=== PATIENT | female | born 1985 | race Two or more races ===

== ENCOUNTER 2020-03-17 09:10 | Outpatient (REF) | payer OTHER, SELFPAY ==
[2020-03-17 12:43] LABS: Influenza A PCR NEGATIVE (Negative); Influenza B PCR NEGATIVE (Negative); Resp Syncy Virus RNA Qual PCR NEGATIVE (Negative); SARS COV2 PCR INHOUSE POSITIVE (Negative)
== END 2020-03-17 09:11 | disposition home or self-care (01) ==
LOC: HO.LAB 09:10
PROVIDERS: Visit Provider Nurse Practitioner Family
DX: J40 Bronchitis, not specified as acute or chronic (principal); Z20.828 Contact with and (suspected) exposure to other viral communicable diseases
CPT/HCPCS: 0241U

== ENCOUNTER 2020-06-10 11:08 | Outpatient (REF) | payer OTHER, SELFPAY ==
[2020-06-10 14:48] LABS: Hematocrit 40.8 % (37-47); Hemoglobin 13.8 g/dl (12.0-16.0); Mean Corpuscular HGB Conc 33.8 g/dl (31.0-35.0); Mean Corpuscular Hemoglobin 32.2 pg (27.0-33.0); Mean Corpuscular Volume 95.3 fL (80-98); Platelet Count 294 X10*3/uL (160-400); Red Blood Count 4.28 X10*6/uL (4.20-5.50); Red Cell Distribution Width 13.4 % (11.0-16.0); White Blood Count 6.8 X10*3/uL (4.8-10.8)
[2020-06-10 15:11] LABS: Alanine Aminotransferase 16 U/L (0-31); Albumin Level 4.8 g/dL (3.5-5.0); Alkaline Phosphatase 66 U/L (39-117); Anion Gap 14 (12-20); Aspartate Amino Transferase 20 U/L (5-31); Bilirubin Total 0.5 mg/dL (0.0-1.0); Blood Urea Nitrogen 9 mg/dL (9-16); Calcium 9.4 mg/dL (8.4-10.2); Carbon Dioxide 24 mmol/L (22-29); Chloride 104 mmol/L (96-108); Estimated Glomerular Filt Rate > 60; Glucose Random 79 mg/dL (60-115); Potassium 4.1 mmol/L (3.3-5.1); Sodium 138 mmol/L (135-145); Total Protein 8.2 g/dL (6.5-8.0)
[2020-06-10 15:36] LABS: TSH reflex Free T4 0.95 uIU/mL (0.32-4.0)
[2020-06-11 04:17] LABS: Triiodothyronine T3 Free 3.2 pg/mL (2.3-4.2)
== END 2020-06-10 11:09 | disposition home or self-care (01) ==
LOC: HO.HMGCLDS 11:08
PROVIDERS: PCP Internal Medicine; Visit Provider Internal Medicine
DX: R63.4 Abnormal weight loss (principal)
CPT/HCPCS: 36415; 80053; 84443; 84481; 85027

== ENCOUNTER 2020-07-26 13:39 | Outpatient (REF) | payer OTHER, SELFPAY ==
[2020-07-26 14:09] LABS: COVID-19 Test Negative (Negative)
== END 2020-07-26 13:40 | disposition home or self-care (01) ==
LOC: HO.LAB 13:39
PROVIDERS: Visit Provider Internal Medicine
DX: Z20.822 Contact with and (suspected) exposure to COVID-19 (principal)
CPT/HCPCS: 36415; 87635; C9803

== ENCOUNTER 2020-08-09 08:02 | Outpatient (REF) | payer OTHER, SELFPAY ==
[2020-08-09 10:16] LABS: HBc Num1 0.14 S/CO (0.00-0.79); HIV AB/AG Nonreactive (Nonreactive); HIV Num 1 0.08 S/CO (0.00-0.99); Hepatitis B Core Antibody Nonreactive (Nonreactive)
[2020-08-09 10:24] LABS: ~HepC Num1 0.09 S/CO (0.00-0.79); ~Hepatitis C Antibody Nonreactive (Nonreactive)
[2020-08-10 09:03] LABS: Syphilis Screen Nonreactive (Nonreactive)
[2020-08-10 12:06] LABS: CT PCR NOT DETECTED (Not Detect.); NG PCR NOT DETECTED (Not Detect.)
[2020-08-16 00:06] LABS: HPV 16 RNA NOT DETECTED (NOT DETECTED); HPV mRNA E6/E7 rflx Detected (Not Detected)
== END 2020-08-09 08:03 | disposition home or self-care (01) ==
LOC: HO.LAB 08:02
PROVIDERS: PCP Internal Medicine; Visit Provider Advanced Practice Midwife
DX: Z01.419 Encounter for gynecological examination (general) (routine) without abnormal findings (principal); Z11.51 Encounter for screening for human papillomavirus (HPV); Z11.3 Encounter for screening for infections with a predominantly sexual mode of transmission; Z11.4 Encounter for screening for human immunodeficiency virus [HIV]; Z01.84 Encounter for antibody response examination; Z20.2 Contact with and (suspected) exposure to infections with a predominantly sexual mode of transmission; N91.5 Oligomenorrhea, unspecified
CPT/HCPCS: 36415; 86704; 86780; 86803; 87389; 87491; 87591; 87624; 87625; 88142

== ENCOUNTER 2020-09-14 13:52 | Outpatient (REF) | payer OTHER, SELFPAY | END 2020-09-14 13:53 | disposition home or self-care (01) | LOC: HO.LAB 13:52 | PROVIDERS: PCP Internal Medicine; Visit Provider Obstetrics & Gynecology | DX: R87.612 Low grade squamous intraepithelial lesion on cytologic smear of cervix (LGSIL) (principal) | CPT/HCPCS: 57456; 88305 ==

== ENCOUNTER 2020-09-23 08:15 | Outpatient (REF) | payer OTHER, SELFPAY | END 2020-09-23 08:16 | disposition home or self-care (01) | LOC: HO.LAB 08:15 | PROVIDERS: PCP Internal Medicine; Visit Provider Internal Medicine | DX: Z20.822 Contact with and (suspected) exposure to COVID-19 (principal) | CPT/HCPCS: C9803; U0003; U0005 ==

== ENCOUNTER → 2020-09-28 11:41 | Outpatient (BNVA) | payer OTHER, SELFPAY | PROVIDERS: PCP Internal Medicine; Visit Provider Obstetrics & Gynecology ==

== ENCOUNTER 2021-10-16 14:38 | Outpatient (REF) | payer OTHER, SELFPAY ==
[2021-10-19 04:26] LABS: HPV mRNA E6/E7 rflx Not Detected (Not Detected)
== END 2021-10-16 14:39 | disposition home or self-care (01) ==
LOC: HO.LAB 14:38
PROVIDERS: Visit Provider Advanced Practice Midwife
DX: Z01.419 Encounter for gynecological examination (general) (routine) without abnormal findings (principal); Z11.51 Encounter for screening for human papillomavirus (HPV)
CPT/HCPCS: 87624; 88142

== ENCOUNTER 2022-01-23 10:40 | Outpatient (REF) | payer OTHER, SELFPAY ==
[2022-01-23 14:13] LABS: MANUAL DIFF FLAG NO
[2022-01-23 14:24] LABS: Basophils Percent Auto 0.5 % (0-2); Eosinophils Percent Auto 1.1 % (0-4); Hematocrit 38.9 % (37.0-47.0); Hemoglobin 13.2 g/dl (12.0-16.0); Imm Gran Abs Auto 0.01 X10*3/uL (0.00-0.03); Imm Gran Pct Auto 0.3 % (0.0-0.4); Lymphocytes Absolute Auto 1.3 X10*3/uL (1.2-4.9); Lymphocytes Percent Auto 33.2 % (20-40); Mean Corpuscular HGB Conc 33.9 g/dl (31.0-35.0); Mean Corpuscular Hemoglobin 31.8 pg (27.0-33.0); Mean Corpuscular Volume 93.7 fL (80.0-98.0); Mean Platelet Volume 9.2 fL (9.4-12.3); Monocytes Absolute Auto 0.3 X10*3/uL (0.1-1.2); Neutrophils Absolute Auto 2.1 x10*3/uL (2.0-8.3); Neutrophils Percent Auto 56.9 % (45-73); Platelet Count 236 X10*3/uL (160-400); Red Blood Count 4.15 X10*6/uL (4.20-5.50); Red Cell Distribution Width 12.3 % (11.0-16.0); White Blood Count 3.8 X10*3/uL (4.8-10.8)
[2022-01-23 14:55] LABS: Vitamin D 25-OH Total 20.5 ng/mL (>30)
[2022-01-23 14:56] LABS: Alanine Aminotransferase 15 U/L (0-31); Albumin Level 4.4 g/dL (3.5-5.0); Alkaline Phosphatase 66 U/L (39-117); Anion Gap 14 (12-20); Aspartate Amino Transferase 18 U/L (5-31); Bilirubin Total 0.5 mg/dL (0.0-1.0); Blood Urea Nitrogen 8 mg/dL (9-16); Carbon Dioxide 23 mmol/L (22-29); Chloride 107 mmol/L (96-108); Cholesterol 187 mg/dL; Estimated Glomerular Filt Rate > 60; Glucose Fasting 78 mg/dL (60-99); HDL Cholesterol 70 mg/dL; LDL Cholesterol Calculated 101 mg/dl; Potassium 3.9 mmol/L (3.3-5.1); Sodium 140 mmol/L (135-145); Total Protein 7.5 g/dL (6.5-8.0); Triglycerides 83 mg/dL
== END 2022-01-23 10:41 | disposition home or self-care (01) ==
LOC: HO.HMGCLDS 10:40
PROVIDERS: PCP Internal Medicine; Visit Provider Internal Medicine
DX: Z00.00 Encounter for general adult medical examination without abnormal findings (principal)
CPT/HCPCS: 36415; 80053; 80061; 82306; 85025

== ENCOUNTER 2022-10-22 13:54 | Outpatient (AMB) | payer OTHER, SELFPAY ==
[2022-10-22 13:56] VITALS: BMI 24.0
--- NOTE | 2022-10-22 13:56 | A.OFFVIS_ITS ---
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 It seems like they have been coming closer together and she has written them down and her calendar but not 100% she listed some of her recent periods when we went through her calendar as the following March 13MarchApril 29 May 23 July 13 August 05 August 28 September 19 and then the last 1 on October 14 she also says her periods are getting cramp ear and more painful. On questioning she does think that the longer cycle periods have been the heavier more crampy ones. On questioning she does not think she has had an extreme weight gain or loss. She thinks she is healthy otherwise but has not seen her primary in a couple of years. She is under lot of stress caring for her father most especially who has gone through a lot of health challenges after having COVID last year when he was hospitalized with PEs and he has gone downhill since and requires a lot of care her mother is there also but she has her own health challenges and a lot of it false to her for care for them. She is not sexually active and does not plan to be till she . She had an abnormal Pap smear after her cheated on her though last year's Pap is normal and negative. She has had no for further sexual contact since then. She was open to cultures being done as I did not find record in our system that we did them at the previous visit. On questioning she does not think that she has increased facial hair but she does notice a little bit on her chin. She has circles under eyes but she says she always has that she tries to take care of herself but it is hard. In reviewing the last 6 months of her cycle cycles range from 46 days and 44 days at the longest to 25 and 22 at the shortest. Patient has additional questions about future fertility issues especially with irregular cycles and what she has heard about with PCOS. She also notes the periods have been much more crampy and uncomfortable and sometime she vomits with the cramps. She wants to know what options there are to deal with them. [facility] Medical History Seizure in childhood Stress and adjustment reaction Weight loss Surgical History Hx of LASIK Family History Father Diabetes HTN (hypertension) CVD (cardiovascular disease) Mother Fibromyalgia Arthritis Maternal Grandmother Diabetes HTN (hypertension) Maternal Grandfather Diabetes HTN (hypertension) CVD (cardiovascular disease) Stroke Glaucoma Paternal Grandmother Stroke Diabetes Maternal Aunt Breast cancer Social History Housing: Apartment Alcohol intake: current Alcohol intake frequency: holidays/special occasions only Patient Tobacco Use Status: Never used Tobacco e-Cigarette/Vaping Use: Never Used Current occupational status: unemployed Cognitive needs: No Hearing needs: No Vision needs: No Female Reproductive History Menstrual Age of Menarche: 13 Duration of menses: 6-7 days Date of last menstrual period: 10/14/22 control method: none Total pregnancies: 0 Date of last pap smear: 10/17/21 (negative) History of abnormal pap smear: Yes (2020 CIN1 +HPV) Physical Exam Vital Signs: BMI result Body Mass Index 24.0 Const General: healthy appearing, comfortable, no acute distress, well developed and alert Nutritional Appearance: average body habitus Orientation/consciousness: patient oriented x3 Limitations: no limitations HEENT Head: Yes normocephalic Neck Neck: Yes normal visual inspection Thyroid: Thyroid normal Chest Chest palpation & inspection: normal inspection of the chest Breast/axilla inspection: normal inspection of the breasts and normal inspection of the axillae Breast/axilla palpation: normal palpation of the breasts and normal palpation of the axillae Resp Effort & Inspection: normal respiratory effort GI Inspection: Yes normal to inspection, No Abdominal wall edema and No distended Palpation (GI): Soft to palpation and nontender General: Yes bladder normal to palpation External Female Exam: normal external appearance and normal appearance of the urethra Speculum Exam - Vagina: normal appearance of the vagina, normal palpation and normal vaginal discharge Speculum Exam - Cervix: normal appearance of the cervix, normal palpation and nontender Bimanual exam- vagina & uterus: normal bimanual exam, normal palpation, uterine size normal, bladder normal to palpation, consistency normal, normal palpation, uterine mobility normal, uterine shape normal, No Cervical tenderness present, non-tender and no cervical motion tenderness Bimanual Exam- Adnexa, other: normal adnexae, no masses, normal and No adnexal tenderness Neuro General: patient oriented x3 Assessment & Plan Assessment & Plan (1) Well woman exam with routine gynecological exam: Code(s): Z01.419 - Encounter for gynecological examination (general) (routine) without abnormal findings (2) LGSIL (low grade squamous intraepithelial dysplasia): Comment: 07/2020, had colpo w MZ- 10/12, also LGSIL....10/16/21 pap= neg w neg hpv (3) Potential exposure to STD: Code(s): Z20.2 - Contact with and (suspected) exposure to infections with a predominantly sexual mode of transmission (4) History of irregular menstrual cycles: Code(s): Z87.42 - Personal history of other diseases of the female genital tract Plan -----Discussed in this visit the following: healthy balanced diet, regular and consistent exercise, getting recommended health screens, doing the best she can for her particular health concerns, kegel exercises, pap smear screening and followup recommendations, mammography screening and SBE, normal changes in cycles in her life stage--- .Discussed the normal menstrual cycles, in terms of length of time for each part of the cycle, range of experiences for bleeding/periods, cramping and clots and the various ways of handling all of these including the various menstrual products available today and common use of non inflammatory medications such as ibuprofen to help with the cramping, and changes in vaginal and cervical discharge that occur throughout the changes in the menstrual cycle. Also discussed what is happening in the ovaries, with preparing to ovulate, ovulation, and what happens afterward as well. Discussed signs of ovulation including fertile appearing mucus, libido changes, breast changes, ovulatory pain and twinges, and the optimal /most risky times to become . Reviewed that menstrual cycles do not obey the printed calendar, but rather follow the body's own cycle discussed what can sometimes happen if the cycle is interrupted by other health events such as anovulatory cycles. Discussed other metabolic changes that have a very profound effect on menstrual cycles including weight and the increased hormones that occur in that setting. ---Discussed PCOS in general and specifically about the interplay of the abnormal hormonal milieu related to being overweight, with the elevations of many hormone levels, including testosterone and estrogen, as well as others that contribute to cycles that are anovulatory and therefore prolonged, and when periods do come they come very heavy, and can contribute to lots of cramping, with passage of clots and anemia. Discussed the common symptoms related to the elvated hormonal levels, including increased facial hair, male pattern hair thinning, acne, and increased central abdominal girth. Discussed the interplay with difficulty getting when desired, but still possible, and therefore the need to contracept as appropriate and when needed. Discussed the role of weight loss as the primary, most important, and most li froy to succeed, intervention, in achieving healthier status as regards PCOS, and ovulatory regular cycles. Additionally the very important relationship to elevated insulin levels, and blood sugars, and high risk of pre diabetes, progressing to diabetes as well as other metabolic syndromes related to this was discussed. Also discussed common interventions for some of the above, including if a ppropriate, use of oral contraceptives, and progestin iuds. All of this was discussed in connection with her irregular cycles and all the possibilities though I do not think the chances of her having PCOS are high but I have offered the blood tests and she and I are going to have more thorough discussion in 3 months when she keeps very close track of her cycles and we review the labs. Additionally I did offer her some of the above methods to deal with her painful periods as well but for now she is going to plow through with taking just the ibuprofen and I recommend she take it at the beginning of her cycles. I also discussed the value of keeping very close track of her cycles and symptoms of ovulation so that if she does get and wished to conceive in the upcoming years she will have knowledge of her cycle very clear Ilene in front of her which may assist her discussed also the decreased fertility as 1 gets older as well. Orders: Orders Bacterial Vaginosis Panel Today Z - Encounter for gynecological examination (general) (routine) without abnormal findings CT NG by PCR Today Z - Encounter for gynecological examination (general) (routine) without abnormal findings Thyroid Stimulating Hormone Today Z - Encounter for gynecological examination (general) (routine) without abnormal findings, Z20.2 - Contact with and (suspected) exposure to infections with a predominantly sexual mode of transmission, Z87.42 - Personal history of other diseases of the female genital tract Prolactin Today Z87. - Personal history of other diseases of the female genital tract DHEA Sulfate Today Z87. - Personal history of other diseases of the female genital tract Follicle Stimulating Hormone Today Z87. - Personal history of other diseases of the female genital tract Lutenizing Hormone Today Z87.42 - Personal history of other diseases of the female genital tract Testosterone, Free/Total Today Z87. - Personal history of other diseases of the female genital tract Sex Hormone Binding Globulin Today Z87. - Personal history of other diseases of the female genital tract Free T4 (Free Thyroxine) Today Z87.42 - Personal history of other diseases of the female genital tract Pap Smear Today Z - Encounter for gynecological examination (general) (routine) without abnormal findings Coding Level of Care Code Est Pt Prev Care 18-39y(69100) Diagnoses Well woman exam with routine gynecological exam Z LGSIL (low grade squamous intraepithelial dysplasia) Potential exposure to STD Z20.2 History of irregular menstrual cycles Z87.42
== END 2022-10-22 15:46 | disposition home or self-care (01) ==
LOC: HO.HWS 13:54
PROVIDERS: PCP Internal Medicine; Visit Provider Advanced Practice Midwife
DX: Z01.419 Encounter for gynecological examination (general) (routine) without abnormal findings (principal); Z20.2 Contact with and (suspected) exposure to infections with a predominantly sexual mode of transmission; Z87.42 Personal history of other diseases of the female genital tract
CPT/HCPCS: 99395

== ENCOUNTER 2022-10-22 13:54 | Outpatient (REF) | payer OTHER, SELFPAY ==
[2022-10-22 17:29] LABS: Free T4 (Free Thyroxine) 1.06 ng/dL (0.71-1.85); Thyroid Stimulating Hormone 1.13 uIU/mL (0.32-4.0)
[2022-10-23 05:54] LABS: CT PCR NOT DETECTED (Not Detect.); NG PCR NOT DETECTED (Not Detect.)
[2022-10-23 14:17] LABS: BV Int Neg Control Negative (Negative); BV Int Pos Control Positive (Positive)
[2022-10-23 19:53] LABS: DHEA Sulfate 424 mcg/dL (19-237); Lutenizing Hormone 21.1 mIU/mL; Prolactin 7.2 ng/mL; Sex Hormone Binding Globulin 50 nmol/L (17-124)
[2022-10-25 22:18] LABS: HPV mRNA E6/E7 rflx Not Detected (Not Detected)
[2022-10-26 16:24] LABS: Testosterone, Total 27 ng/dL (2-45)
== END 2022-10-22 13:55 | disposition home or self-care (01) ==
LOC: HO.LNP 13:54
PROVIDERS: PCP Internal Medicine; Visit Provider Advanced Practice Midwife
DX: Z01.419 Encounter for gynecological examination (general) (routine) without abnormal findings (principal); N92.6 Irregular menstruation, unspecified; Z20.2 Contact with and (suspected) exposure to infections with a predominantly sexual mode of transmission; Z87.42 Personal history of other diseases of the female genital tract; Z79.899 Other long term (current) drug therapy
CPT/HCPCS: 0353U; 82627; 83001; 83002; 84146; 84270; 84402; 84403; 84439; 84443; 87480; 87510; 87624; 87660; 88142

== ENCOUNTER 2023-01-07 09:21 | Outpatient (AMB) | payer OTHER, SELFPAY ==
--- NOTE | 2023-01-07 10:53 | MHC.OFFWIV ---
Intake Vital Signs 01/07/23 10:54 Height 5 ft Weight 56.245 kg BMI 24.2 BP 120/70 Blood Pressure Location Rt brachial Position Sitting Pulse 81 Pulse Source Pulse Oximeter Temp 98.1 F Temp Source Temporal Artery Scan Pulse Oximetry (%) 98 Intake Visit Reasons: EP, left eye redness,discharge ([phone]) Intake Note: pt is here for c/o left eye redness, and discharge, swolle eye left eye 20/20 right eye 20/20 both eyes 20/20 uncorrected Patient Tobacco Use Status: Never used Tobacco Allergies penicillin V Allergy (Unknown, Verified 01/07/23 10:54) hives Do you need a note to return to daycare/school/sports/work: Yes HPI EP, left eye redness,discharge ([phone]) HPI Details Patient presents with 1 day redness purulent drainage of the left eye. She woke up this with the eye crusted shut with purulent drainage. 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 [facility] Medical History Seizure in childhood Stress and adjustment reaction Weight loss Surgical History Hx of LASIK Family History Father Diabetes HTN (hypertension) CVD (cardiovascular disease) Mother Fibromyalgia Arthritis Maternal Grandmother Diabetes HTN (hypertension) Maternal Grandfather Diabetes HTN (hypertension) CVD (cardiovascular disease) Stroke Glaucoma Paternal Grandmother Stroke Diabetes Maternal Aunt Breast cancer Social History Housing: Apartment Alcohol intake: current Alcohol intake frequency: holidays/special occasions only Patient Tobacco Use Status: Never used Tobacco e-Cigarette/Vaping Use: Never Used Current occupational status: unemployed Cognitive needs: No Hearing needs: No Vision needs: No Female Reproductive History Menstrual Age of Menarche: 13 Review of Systems Const Reports as per HPI and Reports no additional complaints Eyes Reports no additional complaints ENT Reports no additional complaints and Reports as per HPI Physical Exam Vital Signs: Last Vital Signs Temp 98.1 F 01/07/23 10:54 Pulse 81 10/16/23 10:54 BP 120/70 01/07/23 10:54 Pulse Ox 98 01/07/23 10:54 BMI result Body Mass Index 24.2 Const General: cooperative, comfortable and no acute distress Orientation/consciousness: patient oriented x3 HEENT General nose exam: Normal nasal mucous membranes and turbinates present Eyes Visual Caldera: normal visual caldera by confrontation Alignment and Position: alignment normal Periorbital: periorbital findings normal Eyelids: Yes eyelids normal Conjunctivae: conjunctival abnormal (Mild injection of the left conjunctiva) Sclerae: scleral abnormal (Mild injection) left Corneas: corneas normal Pupils: Equal, round and reactive pupils present EOM: EOMs intact bilaterally Resp Effort & Inspection: normal respiratory effort Auscultation: clear to auscultation bilaterally Cardio Rate: regular rate Rhythm: regular rhythm Heart sounds: S1 normal heart sound present and S2 normal heart sound present Neuro General: patient oriented x3 Cranial nerves: Yes Equal, round and reactive pupils present Assessment & Plan Assessment & Plan (1) Conjunctivitis: Code(s): H10.9 - Unspecified conjunctivitis Qualifiers: Conjunctivitis type: acute Acute conjunctivitis type: unspecified Laterality: left Qualified Code(s): H10.32 - Unspecified acute conjunctivitis, left eye Plan: Will treat with Polytrim drops. Advised patient on use. She does not wear contact lenses. Counseled on good hand hygiene. Return to clinic if symptoms do not improve or worsen in any way. Medications: New polymyxin B sulf-trimethoprim 10,000 unit- 1 mg/mL (Polytrim) while awake; do not exceed 6 doses in 24 hours 1 drp ophthalmic (eye) QID 7 days 10 mL 0RF H10.32 - Unspecified acute conjunctivitis, left eye Coding Level of Care Code Est Pt Level 3 (91165) Diagnoses Acute conjunctivitis of left eye, unspecified acute conjunctivitis type H10.32 Conjunctivitis type: acute Acute conjunctivitis type: unspecified Laterality: left
[2023-01-07 10:54] VITALS: BP 120/70; PULSE 81; TEMP 36.7; O2SAT 98; BMI 24.2
== END 2023-01-07 11:28 | disposition home or self-care (01) ==
PROVIDERS: PCP Internal Medicine; Visit Provider Physician Assistant
DX: H10.32 Unspecified acute conjunctivitis, left eye (principal)
CPT/HCPCS: 99213

== ENCOUNTER 2023-01-11 14:25 | Outpatient (AMB) | payer OTHER, SELFPAY ==
[2023-01-11 14:29] VITALS: BP 100/62; BMI 24.2
--- NOTE | 2023-01-11 14:29 | A.OFFVIS_ITS ---
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 Information Interpreted: clinical only Allergies penicillin V Allergy (Unknown, Verified 01/11/23 14:31) hives Medication List - Last Reconciled 01/11/23 by Tereza Pate CNM ascorbic acid (vitamin C) 500 mg PO DAILY cholecalciferol (vitamin D3) 50 mcg PO DAILY polymyxin B sulf-trimethoprim 10,000 unit- 1 mg/mL (Polytrim) 1 drp ophthalmic (eye) QID 7 days zinc acetate 50 mg PO DAILY Is last menstrual period known: Yes Last menstrual period: 12/24/22 Post menopausal: No Patient : No Do you need a note to return to daycare/school/sports/work: No HPI Lab follow up HPI Details Patient is here to review her lab work which she had done to review her hirsute is Um and irregular periods she has been keeping track of her periods for a long time and she actually wrote down the date each. Started on a piece of paper for the last 4 years and then and counted how many days between 1 and the next 1 and on average most of her cycles are 23-24 day cycles from the start of 1 to the start of the next with some being as short as 20 days and some as long as 28 days there were also at least 2 cycles that appeared to be twice as long but it is possible that those did not include actual documentation of her menses for those monthsx, She has hirsute is Um. She has thinning of her hair in her temples she is not overweight she sees her primary care provider and has her next appointment coming up in February and she was concerned about the periods and also sometimes they can be very crampy. She is not sexually active now she went through a divorce a little while back she believes in having a child in marriage and while she would like to have children she is not currently and does not have a partner. Her mother went through menopause at age 40. She currently has Glanse. She does not have any other medical issues and among fasting labs that were done in the past in 2021 include of glucose of 78 which is it within the normal range Her labs were reviewed with her today and the labs were mostly within normal limits though her FSH is slightly elevated and also her DHEA is significantly elevated to almost double the high range. The patient states that she and I discussed the value of getting an ultrasound at the last visit and she decided to wait and see how the lab work turned out 1st. We reviewed all of the labs today and discussed their possible significance in determining whether not she fits the full picture of PCOS she does not have all the go menorrhea in fact she has more frequent menses. Discussed that she may want to discuss with either infertility specialists or endocrine specialists in general about potential for diabetes which she is concerned about because of her family history, and also the hirsute is Um and also the hair loss. I also raised the issue of her mother's early menopause and the patient's own potential for future childbearing and what she may wish to do about that. For now we are getting of pelvic ultrasound and I discussed what criteria we would be looking at to indicate an ovulatory cycles. In the meantime I have also placed a endocrine referral for her so that she can have a further discussion about all of this with somebody who has expertise in it I also raised the possibility of taking control pills or some other method of control. She is normotensive. [facility] Medical History Stress and adjustment reaction Weight loss Seizure in childhood Surgical History Hx of LASIK Family History Father Diabetes HTN (hypertension) CVD (cardiovascular disease) Mother Fibromyalgia Arthritis Maternal Grandmother Diabetes HTN (hypertension) Maternal Grandfather Diabetes HTN (hypertension) CVD (cardiovascular disease) Stroke Glaucoma Paternal Grandmother Stroke Diabetes Maternal Aunt Breast cancer Social History Housing: Apartment Alcohol intake: current Alcohol intake frequency: holidays/special occasions only Patient Tobacco Use Status: Never used Tobacco e-Cigarette/Vaping Use: Never Used Current occupational status: unemployed Cognitive needs: No Hearing needs: No Vision needs: No Female Reproductive History Menstrual Age of Menarche: 13 Date of last menstrual period: 12/24/22 control method: none Physical Exam Vital Signs: Last Vital Signs BP 100/62 01/11/23 14:29 BMI result Body Mass Index 24.2 Results Reviewed Results Reviewed: Name: Emiliana Chauhan Age/Sex: 37/F : 1985 Unit#: [id number] Attend Dr: RioTereza MELYSSAEdel Re10/22/22 Status: DEP REF Location: [facility] Disch: SPEC : [id number] CAMERON: 10/22/22 STATUS: COMP REQ : [id number] RECD: 10/22/[address]: Tereza Pate COMP: 10/26/22 ENTERED: 10/22/[address]: Josselin Lozano MD ORDERED: FSH, LH, Prol, DHEAS, Sex Hor Bin Elizabeth, Testost Fr & T Test Result Flag Reference Site FSH 20.0 mIU/mL QUM Reference Range Follicular Phase 2.5-10.2 Mid-cycle Peak 3.1-17.7 Luteal Phase 1.5- 9.1 Postmenopausal 23.0-116.3 THIS TEST WAS PERFORMED AT: [facility] [address] [place] [id number] JULIO C MOORE MD LH 21.1 mIU/mL QUM Reference Range Follicular Phase 1.9-12.5 Mid-Cycle Peak 8.7-76.3 Luteal Phase 0.5-16.9 Postmenopausal 10.0-54.7 THIS TEST WAS PERFORMED AT: [facility] [address] [place] [id number] JULIO C MOORE MD Prolactin 7.2 ng/mL QUM Reference Range Females Non- 3.0-30.0 10.0-209.0 Postmenopausal 2.0-20.0 THIS TEST WAS PERFORMED AT: [facility] [address] [place] [phone] JULIO C MOORE MD DHEA-Sulfate 424 H 19-237 mcg/dL QUM THIS TEST WAS PERFORMED AT: [facility] [address] [place] [phone] JULIO C MOORE MD Sex Hor Bin Elizabeth 50 17-124 nmol/L QUM THIS TEST WAS PERFORMED AT: [facility] [address] [place] [phone] JULIO C MOORE MD Testost, Tot 27 2-45 ng/dL QUM For additional information, please refer to http://education.Gruvi/faq/ [email or web address] (This link is being provided for informational/ educational purposes only.) This test was developed and its analytical performance characteristics have been determined by [facility] [place], [place]. It has not been cleared or approved by the U.S. Food and Drug Administration. This assay has been validated pursuant to the CLIA regulations and is used for clinical purposes. Testost, Free 3.0 0.1-6.4 pg/mL QUM This test was developed and its analytical performance characteristics have been determined by [employer] [place], [place]. It has not been cleared or approved by the U.S. Food and Drug Administration. This assay has been validated pursuant to the CLIA regulations and is used for clinical purposes. THIS TEST WAS PERFORMED AT: [employer] [address] TOR LEMUS MD,PHD Assessment & Plan Assessment & Plan (1) History of irregular menstrual cycles: Code(s): Z87.42 - Personal history of other diseases of the female genital tract (2) Short menstrual cycle: Comment: avg 20-28 days ( most commonly 23-24 day cycles) 2019- through 2022... Code(s): N92.0 - Excessive and frequent menstruation with regular cycle (3) Hirsutism: Code(s): L68.0 - Hirsutism (4) Hair loss: Code(s): L65.9 - Nonscarring hair loss, unspecified Plan Patient is here to review her lab work which she had done to review her hirsute is Um and irregular periods she has been keeping track of her periods for a long time and she actually wrote down the date each. Started on a piece of paper for the last 4 years and then and counted how many days between 1 and the next 1 and on average most of her cycles are 23-24 day cycles from the start of 1 to the start of the next with some being as short as 20 days and some as long as 28 days there were also at least 2 cycles that appeared to be twice as long but it is possible that those did not include actual documentation of her menses for those monthsx, She has hirsute is Um. She has thinning of her hair in her temples she is not overweight she sees her primary care provider and has her next appointment coming up in February and she was concerned about the periods and also sometimes they can be very crampy. She is not sexually active now she went through a divorce a little while back she believes in having a child in marriage and while she would like to have children she is not currently and does not have a partner. Her mother went through menopause at age 40. She currently has Glanse. She does not have any other medical issues and among fasting labs that were done in the past in 2021 include of glucose of 78 which is it within the normal range Her labs were reviewed with her today and the labs were mostly within normal limits though her FSH is slightly elevated and also her DHEA is significantly elevated to almost double the high range. The patient states that she and I discussed the value of getting an ultrasound at the last visit and she decided to wait and see how the lab work turned out 1st. We reviewed all of the labs today and discussed their possible significance in determining whether not she fits the full picture of PCOS she does not have all the go menorrhea in fact she has more frequent menses. Discussed that she may want to discuss with either infertility specialists or endocrine specialists in general about potential for diabetes which she is concerned about because of her family history, and also the hirsute is Um and also the hair loss. I also raised the issue of her mother's early menopause and the patient's own potential for future childbearing and what she may wish to do about that. For now we are getting of pelvic ultrasound and I discussed what criteria we would be looking at to indicate an ovulatory cycles. In the meantime I have also placed a endocrine referral for her so that she can have a further discussion about all of this with somebody who has expertise in it I also raised the possibility of taking control pills or some other method of control. She is normotensive. We will have a visit after the ultrasound and I am placing the endocrine referral as well. Orders: Orders US pelvic and transvaginal Today L65.9 - Nonscarring hair loss, unspecified, L68.0 - Hirsutism, N92.0 - Excessive and frequent menstruation with regular cycle, Z87.42 - Personal history of other diseases of the female genital tract Referrals Endocrinology Referral L65.9 - Nonscarring hair loss, unspecified, L68.0 - Hirsutism, N92.0 - Excessive and frequent menstruation with regular cycle, Z87.42 - Personal history of other diseases of the female genital tract Coding Level of Care Code Est Pt Level 3 (32353) Diagnoses History of irregular menstrual cycles Z87.42 Short menstrual cycle N92.0 Hirsutism L68.0 Hair loss L65.9
== END 2023-01-11 15:19 | disposition home or self-care (01) ==
PROVIDERS: PCP Internal Medicine; Visit Provider Advanced Practice Midwife
DX: Z87.42 Personal history of other diseases of the female genital tract (principal); N92.0 Excessive and frequent menstruation with regular cycle; L68.0 Hirsutism; L65.9 Nonscarring hair loss, unspecified
CPT/HCPCS: 99213

== ENCOUNTER → 2023-01-11 14:25 | Outpatient (BNVA) | payer OTHER, SELFPAY | PROVIDERS: PCP Internal Medicine; Visit Provider Advanced Practice Midwife | DX: N92.0 Excessive and frequent menstruation with regular cycle (principal); L68.0 Hirsutism; L65.9 Nonscarring hair loss, unspecified; Z87.42 Personal history of other diseases of the female genital tract | CPT/HCPCS: 99212 ==

== ENCOUNTER 2023-01-24 12:49 | Outpatient (AMB) | payer OTHER, SELFPAY ==
[2023-01-24 13:07] VITALS: BP 92/66; PULSE 99; O2SAT 99; BMI 24.2
--- NOTE | 2023-01-24 13:07 | MHC.PC.OV ---
Vital Signs 01/24/23 13:07 Height 5 ft Weight 124 lb BMI 24.2 BP 92/66 Blood Pressure Location Lt brachial Position Sitting Pulse 99 Pulse Source Pulse Oximeter Pulse Oximetry (%) 99 Oxygen Delivery Method Room Air Intake Visit Reasons: Annual PE+ NEEDS PHQ9 + THRIVE Intake Note: Pt is here today for PE. Allergies penicillin V Allergy (Unknown, Verified 01/24/23 13:08) hives Medication List - Last Reconciled 01/24/23 by Josselin Lozano MD ascorbic acid (vitamin C) 500 mg PO DAILY cholecalciferol (vitamin D3) 50 mcg PO DAILY zinc acetate 50 mg PO DAILY Tobacco use date assessed: 01/24/23 Dental Screening Dental Screen Date: 01/24/23 Did you have a dental visit in the last 12 months?: Yes Did you have a dental problem in the last 6 months where you did not have access to dental care?: No Was dental information given to patient?: Patient has dentist HPI Annual PE+ NEEDS PHQ9 + THRIVE HPI Details Pt presents for physical. 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 Patient a Pap smear by cotton presser and some basic blood work done. FSH level was borderline high and DHEA level was elevated. Patient has an pelvic ultrasound scheduled. Patient's mother went through menopause at 40. Patient is but would like to have children in the future. [facility] Medical History Stress and adjustment reaction Weight loss Seizure in childhood Surgical History Hx of LASIK Family History Father Diabetes HTN (hypertension) CVD (cardiovascular disease) Mother Fibromyalgia Arthritis Maternal Grandmother Diabetes HTN (hypertension) Maternal Grandfather Diabetes HTN (hypertension) CVD (cardiovascular disease) Stroke Glaucoma Paternal Grandmother Stroke Diabetes Maternal Aunt Breast cancer Social History Housing: Apartment Alcohol intake: current Alcohol intake frequency: holidays/special occasions only Patient Tobacco Use Status: Never used Tobacco e-Cigarette/Vaping Use: Never Used Current occupational status: unemployed Cognitive needs: No Hearing needs: No Vision needs: No Female Reproductive History Menstrual Age of Menarche: 13 Questionnaire PHQ-9 Over the last 2 weeks, how often have you been bothered by any of the following problems? 1. Little interest or pleasure in doing things: not at all 2. Feeling down, depressed, or hopeless: not at all 3. Trouble falling or staying asleep, or sleeping too much: not at all 4. Feeling tired or having little energy: not at all 5. Poor appetite or overeating: not at all 6. Feeling bad about yourself - or that you are a failure or have let yourself or your family down: not at all 7. Trouble concentrating on things, such as reading the newspaper or watching television: not at all 8. Moving or speaking so slowly that other people could have noticed. Or the opposite - being so fidgety or restless that you have been moving around a lot more than usual: not at all 9. Thoughts that you would be better off or of hurting yourself in some way: not at all Total score: 0 Depression Screening Interpretation: Negative Depression Screening Done: Yes Source: Developed by Drs. Porfirio Alcala, Marija Barker, Janusz Pittman and colleagues, with an educational hilario from [employer]. Thrive Questionnaire Date Thrive assessed: 01/24/23 I am a: Patient What is your living situation today?: I have a steady place to live Within the past 12 months, did the food you bought not last and you didn't have the money to get more?: Never true Within the past 12 months, did you worry whether your food would run out before you got money to buy more?: Never true Do you have trouble paying for medicines?: No Do you have trouble getting transportation to medical appointments?: No Do you have trouble paying your heating and electricity bill?: No Do you have trouble taking care of your child, family member or friend?: No Do you have trouble with day-to-day activities such as bathing, preparing meals, shopping, managing finances, etc.?: No Are you currently unemployed and looking for a job?: No Are you interested in more education?: No Please select the resources that you would like help with: None Currently or been in a relationship where the following occur: no concerns reported AUDIT C Alcohol Use Questionnaire (AUDIT-C) 1. How often do you have a drink containing alcohol?: Never 3. How often do you have six or more drinks on one occasion?: Never Total Score: 0 MARNI-7 AMB Questionnaire MARNI-7 Date MARNI - 7 assessed: 01/24/23 Feeling nervous, anxious, or on edge: 0 = Not at all Not being able to stop or control worryin = Not at all Worrying too much about different things: 0 = Not at all Trouble relaxin = Not at all Being so restless that it is hard to sit still: 0 = Not at all Becoming easily annoyed or irritable: 0 = Not at all Feeling afraid as if something awful might happen: 0 = Not at all Total MARNI-7 score (0-4 normal; 5-9 mild; 10-14 moderate; 15-21 severe): 0 Source: Developed by Drs. Porfirio Alcala, Marija Barker, Janusz Pittman and colleagues, with an educational hilario from [employer]. Review of Systems Const All systems reviewed & are unremarkable except as noted in HPI and below Reports no additional complaints Eyes Reports no additional complaints ENT Reports no additional complaints Card Reports no additional complaints Resp Reports no additional complaints GI Reports no additional complaints Physical exam (Primary Care) Vital Signs: Last Vital Signs Pulse 99 01/24/23 13:07 BP 92/66 01/24/23 13:07 Pulse Ox 99 01/24/23 13:07 Oxygen Delivery Method Room Air 01/24/23 13:07 BMI result Body Mass Index 24.2 Tobacco/Smoking Status: Tobacco use Status Tobacco use date assessed 01/24/23 01/24/23 13:14 Patient Tobacco Use Status Never used Tobacco 01/24/23 13:14 e-Cigarette/Vaping Use Never Used 01/24/23 13:14 Depression Screening Interpretation: Negative Thrive Assessment: Date of Thrive Assessment Date Thrive assessed 01/22/22 01/24/23 13:14 Currently or been in a relationship where the following occur: no concerns reported Const General: no acute distress HENMT Ears: hearing grossly normal bilaterally Face and sinus: Yes normal facial exam Eyes General: appearance normal, both eyes and all related structures Neck Neck: Yes supple Resp Effort & Inspection: normal respiratory effort Auscultation: clear to auscultation bilaterally Cardio Rhythm: regular rhythm Heart sounds: S1 normal heart sound present and S2 normal heart sound present GI Inspection: Yes normal to inspection Palpation (GI): Soft to palpation Percussion: Yes normal to percussion Auscultation: normal bowel sounds Assessment and Plan Assessment & Plan (1) Ovarian failure: Code(s): E28.39 - Other primary ovarian failure Plan: Patient will be referred to reproductive endocrinology to evaluate for premature menopause (2) Annual physical exam: Code(s): Z00.00 - Encounter for general adult medical examination without abnormal findings Plan: Well-balanced diet and regular physical activity discussed with the patient. She will return for fasting blood work Orders: Orders Comprehensive [place]. Panel Fast Today Z00.00 - Encounter for general adult medical examination without abnormal findings Complete Blood Count Auto Diff Today Z00.00 - Encounter for general adult medical examination without abnormal findings Lipid Panel Today Z00.00 - Encounter for general adult medical examination without abnormal findings Referrals Endocrinology Referral E28.39 - Other primary ovarian failure, L68.0 - Hirsutism, N92.0 - Excessive and frequent menstruation with regular cycle, Z87.42 - Personal history of other diseases of the female genital tract Coding Level of Care Code Est Pt Prev Care 18-39y(40725) Diagnoses Ovarian failure E28.39 Annual physical exam Z00.00
== END 2023-01-24 14:08 | disposition home or self-care (01) ==
PROVIDERS: Visit Provider Internal Medicine
DX: E28.39 Other primary ovarian failure (principal); Z00.00 Encounter for general adult medical examination without abnormal findings
CPT/HCPCS: 99395

== ENCOUNTER 2023-01-25 11:19 | Outpatient (REF) | payer OTHER, SELFPAY ==
[2023-01-25 11:36] LABS: MANUAL DIFF FLAG NO
[2023-01-25 12:56] LABS: Basophils Percent Auto 0.8 % (0-2); Eosinophils Percent Auto 0.8 % (0-4); Hemoglobin 13.1 g/dl (12.0-16.0); Imm Gran Abs Auto 0.02 X10*3/uL (0.00-0.03); Imm Gran Pct Auto 0.5 % (0.0-0.4); Lymphocytes Absolute Auto 1.4 X10*3/uL (1.2-4.9); Lymphocytes Percent Auto 39.1 % (20-40); Mean Corpuscular HGB Conc 33.6 g/dl (31.0-35.0); Mean Corpuscular Hemoglobin 31.7 pg (27.0-33.0); Mean Corpuscular Volume 94.4 fL (80.0-98.0); Monocytes Absolute Auto 0.3 X10*3/uL (0.1-1.2); Neutrophils Absolute Auto 1.8 x10*3/uL (2.0-8.3); Neutrophils Percent Auto 49.8 % (45-73); Platelet Count 240 X10*3/uL (160-400); Red Blood Count 4.13 X10*6/uL (4.20-5.50); Red Cell Distribution Width 12.7 % (11.0-16.0); White Blood Count 3.7 X10*3/uL (4.8-10.8)
[2023-01-25 14:06] LABS: Alanine Aminotransferase 23 U/L (0-31); Albumin Level 4.3 g/dL (3.5-5.0); Alkaline Phosphatase 57 U/L (39-117); Anion Gap 11 (12-20); Aspartate Amino Transferase 23 U/L (5-31); Bilirubin Total 0.5 mg/dL (0.0-1.0); Blood Urea Nitrogen 6 mg/dL (9-16); Calcium 8.9 mg/dL (8.4-10.2); Carbon Dioxide 25 mmol/L (22-29); Chloride 107 mmol/L (96-108); Cholesterol 208 mg/dL (<200); Estimated Glomerular Filt Rate > 60; Glucose Fasting 81 mg/dL (60-99); HDL Cholesterol 81 mg/dL (>40); LDL Cholesterol Calculated 118 mg/dL (<100); Potassium 4.1 mmol/L (3.3-5.1); Sodium 139 mmol/L (135-145); Total Protein 7.5 g/dL (6.5-8.0); Triglycerides 48 mg/dL (<150)
== END 2023-01-25 11:20 | disposition home or self-care (01) ==
LOC: HO.LAB 11:19
PROVIDERS: PCP Internal Medicine; Visit Provider Internal Medicine
DX: Z00.00 Encounter for general adult medical examination without abnormal findings (principal)
CPT/HCPCS: 36415; 80053; 80061; 85025

== ENCOUNTER 2023-01-31 15:45 | Outpatient (REF) | payer OTHER, SELFPAY ==
--- NOTE | ~2023-01-31 | US_ITS ---
EXAMINATION: US PELVIS CLINICAL INFORMATION: Menorrhagia. Last menstrual period 01/06/2023. COMPARISON: 03/08/2016. TECHNIQUE: Ultrasound of the pelvis is performed using both transabdominal and transvaginal transducers along with Doppler. Transvaginal imaging is performed due to inadequate visualization transabdominally. FINDINGS: The uterus is anteverted, heterogeneous and measures 9.1 x 3.9 x 5.2 cm. No discrete fibroids are identified Accurate measurements of the endometrium were difficult to characterize signal heterogeneity in positioning. Fundal portion of the endometrium appeared focally heterogeneous and measured up to 15 mm and measured 10 mm on other images. Small amount of free fluid in the pelvis. Right ovary measures 2.3 x 2.0 x 1.7 cm, volume 4.1 mL. Complex 1.3 x 1.3 x 0.9 cm right ovarian cyst with thick patel, characteristic of an involuting corpus luteum. Left ovary measures 2.0 x 3.2 x 2.9 cm, volume 9.7 mL. Left ovary 1.3 x 1.2 x 1.1 cm and benign features. There is no indication for follow-up imaging. US/US pelvic and transvaginal IMPRESSION: 1. Heterogeneous uterus. No discrete fibroids. 2. Accurate measurements of the endometrium were difficult to characterize signal heterogeneity in positioning. Fundal portion of the endometrium appeared focally heterogeneous and measured up to 15 mm and measured 10 mm on other images. Correlation with clinical exam recommended to determine further management. Recommend follow-up ultrasound in 6-8 weeks. 3. Small amount of free fluid in the pelvis.
== END 2023-01-31 15:46 | disposition home or self-care (01) ==
LOC: HO.US 15:45
PROVIDERS: PCP Internal Medicine; Visit Provider Advanced Practice Midwife
DX: N92.0 Excessive and frequent menstruation with regular cycle (principal); L68.0 Hirsutism; L65.9 Nonscarring hair loss, unspecified; Z87.42 Personal history of other diseases of the female genital tract
CPT/HCPCS: 76830; 76856

== ENCOUNTER 2023-03-07 14:51 | Outpatient (AMB) | payer OTHER, SELFPAY ==
--- NOTE | 2023-03-07 14:58 | A.OFFVIS_ITS ---
Intake Intake Visit Reasons: Ultrasound follow up Dietetic Intern Required: No Allergies penicillin V Allergy (Unknown, Verified 03/07/23 14:58) hives Medication List - Last Reconciled 03/07/23 by Tereza Pate CNM ascorbic acid (vitamin C) 500 mg PO DAILY cholecalciferol (vitamin D3) 50 mcg PO DAILY zinc acetate 50 mg PO DAILY Is last menstrual period known: Yes Last menstrual period: 03/02/23 Patient : No Do you need a note to return to daycare/school/sports/work: No HPI Ultrasound follow up HPI Details periods: 11/28-12/03. 12/24-x3d 01/14-x3d 02/07-x4d 03/02-x4d. 26d 21d 24d 23d.. This was an extremely lengthy visit when the patient wished to talk about the whole question about whether not she has PCOS she has some features of it with hirsute is Um and she believes some hair loss in her temples though she does have a fairly full head of hair. It is possible to see her scalp a little bit more clearly in those areas so it is possible. The patient was referred by her primary care provider to an biology specimen technician at [facility] as the biology specimen technician that we had referred her to hear was no longer here. She did have a very informative visit with that biology specimen technician and talked about her elevated DHEA and in fact he repeated it and it was even higher at that visit. He has ordered a CT scan of her adrenal glands because she inquired as to whether not she could have a tumor. And she will have a follow-up with him after that but she says her next visit with him will be in 6 months. There is a backup for infertility endocrinology and it might be a year before she can see somebody and it would be in [place]. Meanwhile she cited her recent periods as above and I calculated the number of days of her cycles with her which were as follows 26 days, 21 days, 24 days, 23 days, Discussed her lab results again and I really felt that endocrinology could help with more insights as to why certain levels could be elevated she does have some features that could definitely be consistent with PCOS. I would defer to endocrinology for management. However I am going also to repeat her ultrasound because of the findings. She had curiosity about the terms of had originated the of her uterus which was a nonspecific term the lining of her uterus could be explained by it being done just a few days before her menses. So in ordering a follow-up ultrasound I am requesting that it be done after her menses within the very few days after her menstrual. So that the lining is closer to is thin as it will be.. If this is not able to be achieved the ultrasound can be put off to the following cycle. I also reviewed with her with teaching materials how to keep track of her own signs of fertility for her future benefit in terms of observing fertile mucus and keeping track and how to do it in a simple way and suggested other resource is that she can look up to educate herself. If she so chose she could invest in ovulation predictor kits to help confirm ovulation when she gets it narrow down to her best guess by signs and symptoms. She is not currently with anyone now and is not seeking a now because she intends on childbearing only if she is with somebody in a marriage. This is for her information for her future fertility. I did also suggest that control pills could be of some benefit in helping have her periods be more regular at 28 day cycles and that there may be some thought that it may in fact preserve fertility however she is concerned about that and I asked her to do her own research and think about that as well. She is not interested at this time. We will see her after the ultrasound is done. [facility] Medical History Stress and adjustment reaction Weight loss Seizure in childhood Surgical History Hx of ABRAHAM Family History Father Diabetes HTN (hypertension) CVD (cardiovascular disease) Mother Fibromyalgia Arthritis Maternal Grandmother Diabetes HTN (hypertension) Maternal Grandfather Diabetes HTN (hypertension) CVD (cardiovascular disease) Stroke Glaucoma Paternal Grandmother Stroke Diabetes Maternal Aunt Breast cancer Social History Housing: Apartment Alcohol intake: current Alcohol intake frequency: holidays/special occasions only Patient Tobacco Use Status: Never used Tobacco e-Cigarette/Vaping Use: Never Used Patient : No Current occupational status: unemployed Cognitive needs: No Hearing needs: No Vision needs: No Female Reproductive History Menstrual Age of Menarche: 13 Date of last menstrual period: 03/02/23 control method: none Total pregnancies: 0 Results Reviewed Results Reviewed: Patient: Emiliana Chauhan MR#: [id number] : 1985 Acct:[id number] Age/Sex: 37 / F ADM Date: 01/31/23 Loc: HO.US Attending Dr: Tereza Pate CNM Ordering Physician: Tereza Pate CNM Date of Service: 01/31/23 Procedure(s): US pelvic and transvaginal Accession Number(s): [id number] cc: Josselin Lozano MD; Tereza Pate CNM~ EXAMINATION: US PELVIS CLINICAL INFORMATION: Menorrhagia. Last menstrual period 01/06/2023. COMPARISON: 03/08/2016. TECHNIQUE: Ultrasound of the pelvis is performed using both transabdominal and transvaginal transducers along with Doppler. Transvaginal imaging is performed due to inadequate visualization transabdominally. FINDINGS: The uterus is anteverted, heterogeneous and measures 9.1 x 3.9 x 5.2 cm. No discrete fibroids are identified Accurate measurements of the endometrium were difficult to characterize signal heterogeneity in positioning. Fundal portion of the endometrium appeared focally heterogeneous and measured up to 15 mm and measured 10 mm on other images. Small amount of free fluid in the pelvis. Right ovary measures 2.3 x 2.0 x 1.7 cm, volume 4.1 mL. Complex 1.3 x 1.3 x 0.9 cm right ovarian cyst with thick patel, characteristic of an involuting corpus luteum. Left ovary measures 2.0 x 3.2 x 2.9 cm, volume 9.7 mL. Left ovary 1.3 x 1.2 x 1.1 cm and benign features. There is no indication for follow-up imaging. US/US pelvic and transvaginal IMPRESSION: 1. Heterogeneous uterus. No discrete fibroids. 2. Accurate measurements of the endometrium were difficult to characterize signal heterogeneity in positioning. Fundal portion of the endometrium appeared focally heterogeneous and measured up to 15 mm and measured 10 mm on other images. Correlation with clinical exam recommended to determine further management. Recommend follow-up ultrasound in 6-8 weeks. 3. Small amount of free fluid in the pelvis. Dictated By: Audrey Cantor MD Signed By: <Electronically signed by Audrey Cantor MD in OV> 02/04/23 1453 DD/ 1621 TD/TT: Director Of Student Financial Aid: Assessment & Plan Assessment & Plan (1) Infertility associated with anovulation: Code(s): N97.0 - Female infertility associated with anovulation (2) Hair loss: Code(s): L65.9 - Nonscarring hair loss, unspecified (3) Hirsutism: Code(s): L68.0 - Hirsutism (4) Short menstrual cycle: Comment: avg 20-28 days ( most commonly 23-24 day cycles) 2019- through 2022... Code(s): N92.0 - Excessive and frequent menstruation with regular cycle Plan lengthy discussion re all issues re ? pcos, will f/u w u/s - pt prefers - not too close-or sooner than than 8w, so 2-3m from first is ok. It needs to be done after her menses however lengthy review of patient's cycles with her she is sh having a menses every 21-23-24-26 days so admittedly it will be tricky to schedule however it can be done. f/u after. pt awaiting ct scan of adrenal glands. This was an extremely lengthy visit when the patient wished to talk about the whole question about whether not she has PCOS she has some features of it with hirsute is Um and she believes some hair loss in her temples though she does have a fairly full head of hair. It is possible to see her scalp a little bit more clearly in those areas so it is possible. The patient was referred by her primary care provider to an biology specimen technician at [facility] as the biology specimen technician that we had referred her to hear was no longer here. She did have a very informative visit with that biology specimen technician and talked about her elevated DHEA and in fact he repeated it and it was even higher at that visit. He has ordered a CT scan of her adrenal glands because she inquired as to whether not she could have a tumor. And she will have a follow-up with him after that but she says her next visit with him will be in 6 months. There is a backup for infertility endocrinology and it might be a year before she can see somebody and it would be in [place]. Meanwhile she cited her recent periods as above and I calculated the number of days of her cycles with her which were as follows 26 days, 21 days, 24 days, 23 days, Discussed her lab results again and I really felt that endocrinology could help with more insights as to why certain levels could be elevated she does have some features that could definitely be consistent with PCOS. I would defer to endoc rinology for management. However I am going also to repeat her ultrasound because of the findings. She had curiosity about the terms of had originated the of her uterus which was a nonspecific term the lining of her uterus could be explained by it being done just a few days before her menses. So in ordering a follow-up ultrasound I am requesting that it be done after her menses within the very few days after her menstrual. So that the lining is closer to is thin as it will be.. If this is not able to be achieved the ultrasound can be put off to the following cycle. I also reviewed with her with teaching materials how to keep track of her own signs of fertility for her future benefit in terms of observing fertile mucus and keeping track and how to do it in a simple way and suggested other resource is that she can look up to educate herself. If she so chose she could invest in ovulation predictor kits to help confirm ovulation when she gets it narrow down to her best guess by signs and symptoms. She is not currently with anyone now and is not seeking a now because she intends on childbearing only if she is with somebody in a marriage. This is for her information for her future fertility. I did also suggest that control pills could be of some benefit in helping have her periods be more regular at 28 day cycles and that there may be some thought that it may in fact preserve fertility however she is concerned about that and I asked her to do her own research and think about that as well. She is not interested at this time. We will see her after the ultrasound is done. Orders: Orders US pelvic and transvaginal 2 Months L65.9 - Nonscarring hair loss, unspecified, L68.0 - Hirsutism, N92.0 - Excessive and frequent menstruation with regular cycle, N97.0 - Female infertility associated with anovulation Coding Level of Care Code Est Pt Level 3 (58197) Diagnoses Infertility associated with anovulation N97.0 Hair loss L65.9 Hirsutism L68.0 Short menstrual cycle N92.0
== END 2023-03-07 16:09 | disposition home or self-care (01) ==
LOC: HO.HWS 14:51
PROVIDERS: PCP Internal Medicine; Visit Provider Advanced Practice Midwife
DX: N97.0 Female infertility associated with anovulation (principal); L65.9 Nonscarring hair loss, unspecified; L68.0 Hirsutism; N92.0 Excessive and frequent menstruation with regular cycle
CPT/HCPCS: 99213

== ENCOUNTER → 2023-03-07 14:51 | Outpatient (BNVA) | payer OTHER, SELFPAY | PROVIDERS: PCP Internal Medicine; Visit Provider Advanced Practice Midwife | DX: N97.0 Female infertility associated with anovulation (principal); N92.0 Excessive and frequent menstruation with regular cycle; L65.9 Nonscarring hair loss, unspecified; L68.0 Hirsutism | CPT/HCPCS: 99212 ==

== ENCOUNTER 2023-04-24 15:53 | Outpatient (REF) | payer OTHER, SELFPAY ==
--- NOTE | ~2023-04-24 | US_ITS ---
EXAMINATION: US PELVIS COMPLETE CLINICAL INFORMATION: Additional Notes/Special Instructions f/u of prev u/s. Please do only after period, : COMPARISON: Pelvic ultrasound 01/31/2023 TECHNIQUE: Transabdominal and transvaginal imaging was performed. FINDINGS: The uterus is of normal size and echogenicity measuring 7.7 x 3.3 x 4.1 cm. Uterus is retroflexed in position. A regular homogeneous endometrium is identified measuring 0.8 cm. Both ovaries are of normal size and echogenicity. The right measures 2.8 x 2.0 x 2.1 cm for a volume of 6.2 mL. The left measures 3.2 x 1.8 x 1.5 cm for a volume of 4.5 mL. There is trace simple physiologic volume pelvic free fluid. US/US pelvic and transvaginal IMPRESSION: Retroflexed uterus. Otherwise unremarkable pelvic ultrasound.
== END 2023-04-24 15:54 | disposition home or self-care (01) ==
LOC: HO.US 15:53
PROVIDERS: PCP Internal Medicine; Visit Provider Advanced Practice Midwife
DX: N97.0 Female infertility associated with anovulation (principal); L65.9 Nonscarring hair loss, unspecified; L68.0 Hirsutism; N92.0 Excessive and frequent menstruation with regular cycle
CPT/HCPCS: 76830; 76856

== ENCOUNTER 2023-05-22 14:45 | Outpatient (AMB) | payer OTHER, SELFPAY ==
--- NOTE | 2023-05-22 15:15 | A.OFFVIS_ITS ---
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 The 2nd ultrasound that she had done was completely within normal limits and showed no questionable findings at all and her uterus was retroflexed which which arrived with the physical exam findings. During this visit we also reviewed all of the labs done in the past year and also her history of abnormal Paps and what the ASCCP follow-up will be. She has had visits with her primary care provider as well and is awaiting a reproductive endocrinology consultation in [place] because there are no available appointments in this area she is undecided if she would want to do anything about Ishmael she has not currently in a relationship but I recommend she at least have the discussion so that she has knowledge. 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 Her periods are still coming closer then 28 days. She says her mom went through menopause when she was 42 these are all questions she will address as well with reproductive endocrinology. Reviewed her history of abnormal Paps in 2020 with the following 2 Paps being negative her next Pap according to ASCCP should be in 2025 3 years from September of 2022 [facility] Medical History Stress and adjustment reaction Weight loss Seizure in childhood Surgical History Hx of LASIK Family History Father Diabetes HTN (hypertension) CVD (cardiovascular disease) Mother Fibromyalgia Arthritis Maternal Grandmother Diabetes HTN (hypertension) Maternal Grandfather Diabetes HTN (hypertension) CVD (cardiovascular disease) Stroke Glaucoma Paternal Grandmother Stroke Diabetes Maternal Aunt Breast cancer Social History (Updated 05/22/23 @ 15:27 by Candi Garcia MA) Housing: Apartment Alcohol intake: never Patient Tobacco Use Status: Never used Tobacco e-Cigarette/Vaping Use: Never Used Patient : No service: No Current occupational status: employed 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 Attending Dr: Tereza Pate CNM Ordering Physician: Tereza Pate CNM Date of Service: 04/24/23 Procedure(s): US pelvic and transvaginal Accession Number(s): [id number] cc: Josselin Lozano MD; Tereza Pate CNM~ EXAMINATION: US PELVIS COMPLETE CLINICAL INFORMATION: Additional Notes/Special Instructions f/u of prev u/s. Please do only after period, : COMPARISON: Pelvic ultrasound 01/31/2023 TECHNIQUE: Transabdominal and transvaginal imaging was performed. FINDINGS: The uterus is of normal size and echogenicity measuring 7.7 x 3.3 x 4.1 cm. Uterus is retroflexed in position. A regular homogeneous endometrium is identified measuring 0.8 cm. Both ovaries are of normal size and echogenicity. The right measures 2.8 x 2.0 x 2.1 cm for a volume of 6.2 mL. The left measures 3.2 x 1.8 x 1.5 cm for a volume of 4.5 mL. There is trace simple physiologic volume pelvic free fluid. US/US pelvic and transvaginal IMPRESSION: Retroflexed uterus. Otherwise unremarkable pelvic ultrasound. Dictated By: Anahi Vargas MD Signed By: <Electronically signed by Anahi Vargas MD in OV> 04/25/23 1904 DD/ 1616 TD/TT: Hot Packer: -------- Patient: Emiliana Chauhan MR#: [id number] : 1985 Acct:[id number] Age/Sex: 37 / F ADM Date: 01/31/23 Loc: HO.US Attending Dr: Tereza Pate CNM Ordering Physician: Tereza Pate CNM Date of Service: 01/31/23 Procedure(s): US pelvic and transvaginal Accession Number(s): [id number] cc: Josselin Lozano MD; Tereza Pate CNM~ EXAMINATION: US PELVIS CLINICAL INFORMATION: Menorrhagia. Last menstrual period 01/06/2023. COMPARISON: 03/08/2016. TECHNIQUE: Ultrasound of the pelvis is performed using both transabdominal and transvaginal transducers along with Doppler. Transvaginal imaging is performed due to inadequate visualization transabdominally. FINDINGS: The uterus is anteverted, heterogeneous and measures 9.1 x 3.9 x 5.2 cm. No discrete fibroids are identified Accurate measurements of the endometrium were difficult to characterize signal heterogeneity in positioning. Fundal portion of the endometrium appeared focally heterogeneous and measured up to 15 mm and measured 10 mm on other images. Small amount of free fluid in the pelvis. Right ovary measures 2.3 x 2.0 x 1.7 cm, volume 4.1 mL. Complex 1.3 x 1.3 x 0.9 cm right ovarian cyst with thick patel, characteristic of an involuting corpus luteum. Left ovary measures 2.0 x 3.2 x 2.9 cm, volume 9.7 mL. Left ovary 1.3 x 1.2 x 1.1 cm and benign features. There is no indication for follow-up imaging. US/US pelvic and transvaginal IMPRESSION: 1. Heterogeneous uterus. No discrete fibroids. 2. Accurate measurements of the endometrium were difficult to characterize signal heterogeneity in positioning. Fundal portion of the endometrium appeared focally heterogeneous and measured up to 15 mm and measured 10 mm on other images. Correlation with clinical exam recommended to determine further management. Recommend follow-up ultrasound in 6-8 weeks. 3. Small amount of free fluid in the pelvis. Dictated By: Audrey Cantor MD Signed By: <Electronically signed by Audrey Cantor MD in OV> 02/04/23 1453 DD/ 1621 TD/TT: Hot Packer: Name: Emiliana Chauhan Age/Sex: 37/F Attending: Tereza Pate CNM : 1985 Submitted by: Tereza Pate CNM Copies to: Josselin Lozano MD MR #: [id number] Status: DEP REF Collected: 10/22/22 Location: [facility] Received: 10/23/22 Interpretation Satisfactory for evaluation. No endocervical cells seen. Cytolysis noted. Negative for intraepithelial lesion or malignancy. HPV mRNA E6/E7: NOT DETECTED This assay detects E6/E7 viral messenger RNA (mRNA) from 14 high-risk HPV types (16, 18, 31, 33, 35, 39, 45, 51, 52, 56, 58, 59, 66, 68) HPV testing performed by [facility], [place], [place]. See reference laboratory pion of the EMR for entire report. Clinical Information LMP: 10/14/22 Previous PAP test: 10/17/21, WNL Material Received ThinPrep-Cervical Copies To Josselin Lozano MD [address] [place] [address] Name: Emiliana Chauhan Age/Sex: 37/F : 1985 Unit#: [id number] Attend Dr: Tereza Pate CNM Re10/22/22 Status: DEP REF Location: [facility] Disch: SPEC : [id number] [place]: 10/22/22 STATUS: COMP REQ : [id number] RECD: 10/22/[address] [facility] [address]: Tereza Pate [facility] COMP: 10/26/22-162 ENTERED: 10/22/22-1533 [facility] [address]: Josselin Lozano MD ORDERED: FSH, LH, Prol, DHEAS, Sex Hor Bin Elizabeth, Testost Fr & T Test Result Flag Reference FSH 20.0 mIU/mL Reference Range Follicular Phase 2.5-10.2 Mid-cycle Peak 3.1-17.7 Luteal Phase 1.5- 9.1 Postmenopausal 23.0-116.3 THIS TEST WAS PERFORMED AT: [facility] [address] [phone] JULIO C MOORE MD LH 21.1 mIU/mL Reference Range Follicular Phase 1.9-12.5 Mid-Cycle Peak 8.7-76.3 Luteal Phase 0.5-16.9 Postmenopausal 10.0-54.7 THIS TEST WAS PERFORMED AT: [facility] [address] [place] [phone] JULIO C MOORE MD Prolactin 7.2 ng/mL Reference Range Females Non- 3.0-30.0 10.0-209.0 Postmenopausal 2.0-20.0 THIS TEST WAS PERFORMED AT: [facility] [address] [place] [phone] JULIO C MOORE MD DHEA-Sulfate 424 H 19-237 mcg/dL THIS TEST WAS PERFORMED AT: [facility] [address] [place] [phone] JULIO C MOORE MD Sex Hor Bin Elizabeth 50 17-124 nmol/L THIS TEST WAS PERFORMED AT: [facility] [address] [place] [phone] JULIO C MOORE MD Testost, Tot 27 2-45 ng/dL For additional information, please refer to http://education.[employer]/faq/ RkgggLfnlesdkjypvKDCMGVACW742 (This link is being provided for informational/ educational purposes only.) This test was developed and its analytical performance characteristics have been determined by [facility] [place], [place]. It has not been cleared or approved by the U.S. Food and Drug Administration. This assay has been validated pursuant to the CLIA regulations and is used for clinical purposes. Testost, Free 3.0 0.1-6.4 pg/mL This test was developed and its analytical performance characteristics have been determined by [facility] [place], [place]. It has not been cleared or approved by the U.S. Food and Drug Administration. This assay has been validated pursuant to the CLIA regulations and is used for clinical purposes. THIS TEST WAS PERFORMED AT: [facility] [address] [place], [place] TOR LEMUS MD,PHD [phone] Barrett Gomes [place], [place] [id number] Electronically Signed By: WAYNE Davenport ([facility]) 11/13/22 4328 The Pap Test is a screening procedure with the inherent possibility of both false negative and false positive results. Results should be interpreted in the context of historic and current clinical findings. Reliability of the Pap Test is enhanced by performing the test on a regular repetitive basis. Patient: Bronson Dc Assessment & Plan Assessment & Plan (1) Infertility associated with anovulation: Comment: Has been referred to [place] reproductive endocrinology per her [facility], Code(s): N97.0 - Female infertility associated with anovulation (2) Hair loss: Code(s): L65.9 - Nonscarring hair loss, unspecified (3) Hirsutism: Code(s): L68.0 - Hirsutism (4) Short menstrual cycle: Comment: avg 20-28 days ( most commonly 23-24 day cycles) 2019- through 2022... Code(s): N92.0 - Excessive and frequent menstruation with regular cycle (5) History of irregular menstrual cycles: Code(s): Z87.42 - Personal history of other diseases of the female genital tract (6) LGSIL (low grade squamous intraepithelial dysplasia): Comment: 07/2020 LSIL w Pos HPV, had colpo w MZ- 10/12.; 10/16/21 pap= neg w neg hpv; 10/22/2022 Pap is negative with negative HPV.; per asccp,plan is 3 yr followup. ( 2025). Plan Follow-up on ultrasound to review the process of following up on her previous LEEP done PCOS labs and her endocrine consultations. The 2nd ultrasound that she had done was completely within normal limits and showed no questionable findings at all and her uterus was retroflexed which which arrived with the physical exam findings. During this visit we also reviewed all of the labs done in the past year and also her history of abnormal Paps and what the ASCCP follow-up will be. She has had visits with her primary care provider as well and is awaiting a reproductive endocrinology consultation in [place] because there are no available appointments in this area she is undecided if she would want to do anything about Ishmael she has not currently in a relationship but I recommend she at least have the discussion so that she has knowledge. 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 Her periods are still coming closer then 28 days. She says her mom went through menopause when she was 42 these are all questions she will address as well with reproductive endocrinology. Reviewed her history of abnormal Paps in 2020 with the following 2 Paps being negative her next Pap according to ASCCP should be in 2025 3 years from September of 2022 Coding Level of Care Code Est Pt Level 3 (40925) Diagnoses Infertility associated with anovulation N97.0 Hair loss L65.9 Hirsutism L68.0 Short menstrual cycle N92.0 History of irregular menstrual cycles Z87.42 LGSIL (low grade squamous intraepithelial dysplasia)
[2023-05-22 15:17] VITALS: BP 102/64; BMI 24.2
== END 2023-05-22 17:39 ==
LOC: HO.HWSM 14:46
PROVIDERS: PCP Internal Medicine; Visit Provider Advanced Practice Midwife
DX: N97.0 Female infertility associated with anovulation (principal); L65.9 Nonscarring hair loss, unspecified; L68.0 Hirsutism; N92.0 Excessive and frequent menstruation with regular cycle; Z87.42 Personal history of other diseases of the female genital tract
CPT/HCPCS: 99213

== ENCOUNTER → 2023-05-22 14:45 | Outpatient (BNVA) | payer OTHER, SELFPAY | PROVIDERS: PCP Internal Medicine; Visit Provider Advanced Practice Midwife | DX: N97.0 Female infertility associated with anovulation (principal); N92.0 Excessive and frequent menstruation with regular cycle; L65.9 Nonscarring hair loss, unspecified; L68.0 Hirsutism; Z87.42 Personal history of other diseases of the female genital tract | CPT/HCPCS: 99212 ==

== ENCOUNTER 2024-02-14 12:58 | Outpatient (AMB) | payer OTHER, SELFPAY ==
[2024-02-14 13:16] VITALS: BP 104/60; PULSE 92; O2SAT 96; BMI 25.0
--- NOTE | 2024-02-14 13:16 | A.OFFPC_ITS ---
Vital Signs 02/14/24 13:16 Height 5 ft Weight 128 lb BMI 25.0 BP 104/60 Blood Pressure Location Lt brachial Position Sitting Pulse 92 Pulse Source Pulse Oximeter Pulse Oximetry (%) 96 Oxygen Delivery Method Room Air Intake Visit Reasons: Annual PE Intake Note: Pt is here today for PE. Allergies penicillin V Allergy (Unknown, Verified 02/14/24 13:28) hives Medication List - Last Reconciled 02/14/24 by Josselin Lozano MD ascorbic acid (vitamin C) 500 mg PO DAILY cholecalciferol (vitamin D3) 50 mcg PO DAILY omega-3 fatty acids (Fish Oil) 1,000mg daily Tobacco use date assessed: 02/14/24 Dental Screening Dental Screen Date: 02/14/24 Did you have a dental visit in the last 12 months?: Yes Did you have a dental problem in the last 6 months where you did not have access to dental care?: No Was dental information given to patient?: Patient has dentist HPI Annual PE HPI Details Pt presents for PE. She complains of ongoing hair loss and had workup with sewage plant supervisor indicating only elevated DHEA level. Patient follows up with guidance consultant wafer production lead worker for abnormal Pap smear. [facility] Medical History Stress and adjustment reaction Weight loss Seizure in childhood Surgical History Hx of LASIK Family History Father Diabetes HTN (hypertension) CVD (cardiovascular disease) Mother Fibromyalgia Arthritis Maternal Grandmother Diabetes HTN (hypertension) Maternal Grandfather Diabetes HTN (hypertension) CVD (cardiovascular disease) Stroke Glaucoma Paternal Grandmother Stroke Diabetes Maternal Aunt Breast cancer Social History (Updated 05/22/23 @ 15:27 by Candi Garcia MA) Housing: Apartment Alcohol intake: never Patient Tobacco Use Status: Never used Tobacco e-Cigarette/Vaping Use: Never Used service: No Current occupational status: 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 1. Little interest or pleasure in doing things: not at all 2. Feeling down, depressed, or hopeless: several days 3. Trouble falling or staying asleep, or sleeping too much: not at all 4. Feeling tired or having little energy: not at all 5. Poor appetite or overeating: not at all 6. Feeling bad about yourself - or that you are a failure or have let yourself or your family down: several days 7. Trouble concentrating on things, such as reading the newspaper or watching television: not at all 8. Moving or speaking so slowly that other people could have noticed. Or the opposite - being so fidgety or restless that you have been moving around a lot more than usual: not at all 9. Thoughts that you would be better off or of hurting yourself in some way: not at all Total score: 2 Depression Screening Interpretation: Negative Depression Screening Done: Yes 32664 - PHQ-9 Billing: Yes Source: Developed by Drs. Porfirio Alcala, Marija Barker, Janusz Pittman and colleagues, with an educational hilario from [employer]. Thrive Questionnaire Date Thrive assessed: 02/14/24 I am a: Patient What is your living situation today?: I have a steady place to live Within the past 12 months, did the food you bought not last and you didn't have the money to get more?: Never true Within the past 12 months, did you worry whether your food would run out before you got money to buy more?: Never true Do you have trouble paying for medicines?: No Do you have trouble getting transportation to medical appointments?: No Do you have trouble paying your heating and electricity bill?: No Do you have trouble taking care of your child, family member or friend?: No Do you have trouble with day-to-day activities such as bathing, preparing meals, shopping, managing finances, etc.?: No Are you currently unemployed and looking for a job?: No Are you interested in more education?: No Please select the resources that you would like help with: None Currently or been in a relationship where the following occur: No concerns reported THRIVE Score: 0 AUDIT C Alcohol Use Questionnaire (AUDIT-C) 1. How often do you have a drink containing alcohol?: Never 3. How often do you have six or more drinks on one occasion?: Never Total Score: 0 MARNI-7 AMB Questionnaire MARNI-7 Date MARNI - 7 assessed: 02/14/24 Feeling nervous, anxious, or on edge: 0 = Not at all Not being able to stop or control worryin = More than half the days Worrying too much about different things: 2 = More than half the days Trouble relaxin = Several days Being so restless that it is hard to sit still: 0 = Not at all Becoming easily annoyed or irritable: 0 = Not at all Feeling afraid as if something awful might happen: 0 = Not at all Total MARNI-7 score (0-4 normal; 5-9 mild; 10-14 moderate; 15-21 severe): 5 Source: Developed by Drs. Porfirio Alcala, Marija Barker, Janusz Pittman and colleagues, with an educational hilario from [employer]. MARNI-7 Assessment Billing MARNI-7 Assessment Tool: MARNI-7 Assessment 21533 Review of Systems Const All systems reviewed & are unremarkable except as noted in HPI and below Eyes Reports no additional complaints ENT Reports no additional complaints Card Reports no additional complaints Resp Reports no additional complaints GI Reports no additional complaints Reports no additional complaints Physical exam (Primary Care) Vital Signs: Last Vital Signs Pulse 92 02/14/24 13:16 BP 104/60 02/14/24 13:16 Pulse Ox 96 02/14/24 13:16 Oxygen Delivery Method Room Air 02/14/24 13:16 BMI result Body Mass Index 25.0 Tobacco/Smoking Status: Tobacco use Status Tobacco use date assessed 02/14/24 02/14/24 13:31 Patient Tobacco Use Status Never used Tobacco 02/14/24 13:16 e-Cigarette/Vaping Use Never Used 02/14/24 13:16 PHQ-9: PHQ-9 Score PHQ-9: Total score 2 02/14/24 13:31 Depression Screening Interpretation: Negative Thrive Assessment: Date of Thrive Assessment Date Thrive assessed 02/14/24 02/14/24 13:31 Currently or been in a relationship where the following occur: No concerns reported Const General: no acute distress HENMT Head: Yes normal to inspection Ears: hearing grossly normal bilaterally Mouth: Normal oral and palatal mucosa present Eyes General: appearance normal, both eyes and all related structures Neck Neck: Yes no lymphadenopathy and Yes supple Resp Effort & Inspection: normal respiratory effort Auscultation: clear to auscultation bilaterally Cardio Rhythm: regular rhythm Heart sounds: S1 normal heart sound present and S2 normal heart sound present GI Inspection: Yes normal to inspection Palpation (GI): Soft to palpation Percussion: Yes normal to percussion Auscultation: normal bowel sounds Coding Level of Care Code Est Pt Prev Care 18-39y(57393) Diagnoses Annual physical exam Z00. Hair loss L65.9 LGSIL (low grade squamous intraepithelial dysplasia) Additional Codes MARNI-7 Assessment Billing - MARNI-7 Assessment Tool: MARNI-7 Assessment 56410 ([id number]) PHQ-9 - 00957 - PHQ-9 Billing: Yes ([id number]) Assessment & Plan Assessment & Plan (1) Annual physical exam: Code(s): Z00.00 - Encounter for general adult medical examination without abnormal findings Category: Medical Plan: Well-balanced diet regular exercise stress management discussed with the patient. She will return for fasting blood work (2) Hair loss: Comment: w/u by endo elevated DHEA nl LSH/LH, testosterone, referred to dermatology 01/2024 Code(s): L65.9 - Nonscarring hair loss, unspecified Category: Medical Plan: Referred to dermatology (3) LGSIL (low grade squamous intraepithelial dysplasia): Comment: 07/2020 LSIL w Pos HPV, had colpo w MZ- 10/12.; 10/16/21 pap= neg w neg hpv; 10/22/2022 Pap is negative with negative HPV.; per asccp,plan is 3 yr followup. ( 2025). Category: Medical Plan: Follow-up with guidance consultant Orders: Orders Comprehensive [place]. Panel Fast Today Z00.00 - Encounter for general adult medical examination without abnormal findings Lipid Panel Today Z00.00 - Encounter for general adult medical examination without abnormal findings TSH reflex Free T4 Today Z00.00 - Encounter for general adult medical examination without abnormal findings UA and rflx microscopic Today Z00.00 - Encounter for general adult medical examination without abnormal findings IRON PROFILE Today L65.9 - Nonscarring hair loss, unspecified, Z00.00 - Encounter for general adult medical examination without abnormal findings Vitamin D 25-OH Total Today L65.9 - Nonscarring hair loss, unspecified, Z00.00 - Encounter for general adult medical examination without abnormal findings Hemoglobin A1c Today Z00.00 - Encounter for general adult medical examination without abnormal findings Complete Blood Count Auto Diff Today Z00.00 - Encounter for general adult medical examination without abnormal findings Vitamin B12 Today L65.9 - Nonscarring hair loss, unspecified, Z00.00 - Encounter for general adult medical examination without abnormal findings Referrals Dermatology Referral L65.9 - Nonscarring hair loss, unspecified
== END 2024-02-14 13:57 | disposition home or self-care (01) ==
PROVIDERS: PCP Internal Medicine; Visit Provider Internal Medicine
DX: Z00.00 Encounter for general adult medical examination without abnormal findings (principal); L65.9 Nonscarring hair loss, unspecified

== ENCOUNTER → 2024-02-14 12:58 | Outpatient (BNVA) | payer OTHER, SELFPAY | PROVIDERS: PCP Internal Medicine; Visit Provider Internal Medicine | DX: Z00.00 Encounter for general adult medical examination without abnormal findings (principal); L65.9 Nonscarring hair loss, unspecified | CPT/HCPCS: 96127; 99395 ==

== ENCOUNTER 2024-02-17 11:16 | Outpatient (REF) | payer OTHER, SELFPAY ==
[2024-02-17 11:33] LABS: MANUAL DIFF FLAG NO
[2024-02-17 11:49] LABS: Basophils Percent Auto 0.5 % (0-2); Eosinophils Absolute Auto 0.1 X10*3/uL (0.0-0.4); Eosinophils Percent Auto 1.4 % (0-4); Hematocrit 36.3 % (37.0-47.0); Hemoglobin 12.5 g/dl (12.0-16.0); Imm Gran Abs Auto 0.02 X10*3/uL (0.00-0.03); Imm Gran Pct Auto 0.5 % (0.0-0.4); Lymphocytes Absolute Auto 1.3 X10*3/uL (1.2-4.9); Lymphocytes Percent Auto 31.2 % (20-40); Mean Corpuscular HGB Conc 34.4 g/dl (31.0-35.0); Mean Corpuscular Hemoglobin 32.4 pg (27.0-33.0); Mean Platelet Volume 8.8 fL (9.4-12.3); Monocytes Absolute Auto 0.4 X10*3/uL (0.1-1.2); Monocytes Percent Auto 8.5 % (2-11); Neutrophils Absolute Auto 2.5 x10*3/uL (2.0-8.3); Neutrophils Percent Auto 57.9 % (45-73); Platelet Count 227 X10*3/uL (160-400); Red Blood Count 3.86 X10*6/uL (4.20-5.50); Red Cell Distribution Width 12.6 % (11.0-16.0); White Blood Count 4.3 X10*3/uL (4.8-10.8)
[2024-02-17 11:51] LABS: Appearance Urine Clear; Color Urine Yellow; Glucose Urine UA Negative (Negative); Leukocyte Esterase Urine Negative (Negative); Nitrite Urine Negative (Negative); PH 5.5 (5.0-9.0); UMIC TRIGGER UA YES; Urine Blood Large (3+) (Negative); Urine Ketones Negative (Negative); Urine Protein Negative (Neg-Trace)
[2024-02-17 11:58] LABS: Bacteria Urine None Seen (None Seen); Hyaline Casts Urine 0-2 /LPF (0-2); Squamous Epithelial Cell Urine 0-2 /HPF (0-2); WBC Urine 0-5 /HPF (0-5)
[2024-02-17 12:03] LABS: Estimated Average Glucose 100 mg/dL; Hemoglobin A1C 101.9075 umol/L; Hemoglobin A1c % 5.1 % (<6.0); Total Hemoglobin (HGBA1C) 3199.9927 umol/L
[2024-02-17 12:27] LABS: Alanine Aminotransferase 24 U/L (0-31); Albumin Level 4.2 g/dL (3.5-5.0); Alkaline Phosphatase 64 U/L (39-117); Anion Gap 8 (12-20); Aspartate Amino Transferase 22 U/L (5-31); Bilirubin Total 0.3 mg/dL (0.0-1.0); Blood Urea Nitrogen 9 mg/dL (9-16); Calcium 9.1 mg/dL (8.4-10.2); Carbon Dioxide 27 mmol/L (22-29); Chloride 106 mmol/L (96-108); Cholesterol 181 mg/dL (<200); Estimated Glomerular Filt Rate > 60; Glucose Fasting 96 mg/dL (60-99); HDL Cholesterol 71 mg/dL (>40); Iron 63 mcg/dL (30-160); LDL Cholesterol Calculated 104 mg/dL (<100); Percent Iron Saturation 25 % (15-50); Potassium 4.3 mmol/L (3.3-5.1); Sodium 137 mmol/L (135-145); Total Iron Binding Capacity 251 mcg/dL (228-428); Triglycerides 31 mg/dL (<150); Unsaturated Iron Binding 188 ug/dL
[2024-02-17 12:43] LABS: TSH reflex Free T4 1.45 uIU/mL (0.32-4.0); Vitamin D 25-OH Total 36.6 ng/mL (>30)
[2024-02-17 12:46] LABS: Vitamin B12 493 pg/mL (200-900)
== END 2024-02-17 11:17 | disposition home or self-care (01) ==
LOC: HO.LAB 11:16
PROVIDERS: PCP Internal Medicine; Visit Provider Internal Medicine
DX: Z00.00 Encounter for general adult medical examination without abnormal findings (principal); L65.9 Nonscarring hair loss, unspecified
CPT/HCPCS: 36415; 80053; 80061; 81001; 82306; 82607; 83036; 83540; 84443; 85025

== ENCOUNTER 2024-09-15 11:35 | Outpatient (REF) | payer OTHER, SELFPAY ==
[2024-09-18 05:14] LABS: TS Negative Control Passed; TS Panel A 0; TS Panel B 1; TS Positive Control Passed; TSpotTB Negative (Negative)
== END 2024-09-15 11:36 | disposition home or self-care (01) ==
LOC: HO.HMGCLDS 11:35
PROVIDERS: PCP Internal Medicine; Visit Provider Internal Medicine
DX: Z11.1 Encounter for screening for respiratory tuberculosis (principal)
CPT/HCPCS: 36415; 86481

== ENCOUNTER 2025-02-15 11:05 | Outpatient (AMB) | payer OTHER, SELFPAY ==
--- NOTE | 2025-02-15 11:07 | MHC.PC.OV ---
Vital Signs 02/15/25 11:08 Height 5 ft Weight 135 lb BMI 26.4 BP 92/62 Blood Pressure Location Lt brachial Position Sitting Respiration 15 Pulse 95 Pulse Source Pulse Oximeter Temp 99.0 F Temp Source Oral Pulse Oximetry (%) 96 Oxygen Delivery Method Room Air Intake Visit Reasons: PE PHQ-9 needed.-inactive insurance Intake Note: Pt is here today for PE. Allergies penicillin V Allergy (Unknown, Verified 02/15/25 11:08) hives Medication List - Last Reconciled 02/15/25 by Josselin Lozano MD ascorbic acid (vitamin C) 500 mg PO DAILY cholecalciferol (vitamin D3) 50 mcg PO DAILY omega-3 fatty acids (Fish Oil) 1,000mg daily Tobacco use date assessed: 02/15/25 Dental Screening Dental Screen Date: 02/15/25 Did you have a dental visit in the last 12 months?: Yes Did you have a dental problem in the last 6 months where you did not have access to dental care?: No Was dental information given to patient?: Patient has dentist HPI PE PHQ-9 needed.-inactive insurance HPI Details Pt presents for PE. PFSH Medical History (Updated 02/15/25 @ 11:24 by Josselin Lozano MD) LGSIL (low grade squamous intraepithelial dysplasia) Annual physical exam Stress and adjustment reaction Weight loss Seizure in childhood Surgical History Hx of LASIK Family History Father Diabetes HTN (hypertension) CVD (cardiovascular disease) Mother Fibromyalgia Arthritis Maternal Grandmother Diabetes HTN (hypertension) Maternal Grandfather Diabetes HTN (hypertension) CVD (cardiovascular disease) Stroke Glaucoma Paternal Grandmother Stroke Diabetes Maternal Aunt Breast cancer Social History (Updated 02/15/25 @ 11:25 by Josselin Lozano MD) Household Members 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 1. Little interest or pleasure in doing things: not at all 2. Feeling down, depressed, or hopeless: not at all 3. Trouble falling or staying asleep, or sleeping too much: not at all 4. Feeling tired or having little energy: not at all 5. Poor appetite or overeating: not at all 6. Feeling bad about yourself - or that you are a failure or have let yourself or your family down: not at all 7. Trouble concentrating on things, such as reading the newspaper or watching television: not at all 8. Moving or speaking so slowly that other people could have noticed. Or the opposite - being so fidgety or restless that you have been moving around a lot more than usual: not at all 9. Thoughts that you would be better off or of hurting yourself in some way: not at all Total score: 0 Depression Screening Interpretation: Negative Depression Screening Done: Yes 85695 - PHQ-9 Billing: Yes Source: Developed by Drs. Porfirio Alcala, Marija Barker, Janusz Pittman and colleagues, with an educational hilario from [employer]. Thrive Questionnaire Date Thrive assessed: 02/15/25 I am a: Patient What is your living situation today?: I have a steady place to live Within the past 12 months, did the food you bought not last and you didn't have the money to get more?: Never true Within the past 12 months, did you worry whether your food would run out before you got money to buy more?: Never true Do you have trouble paying for medicines?: No Do you have trouble getting transportation to medical appointments?: No Do you have trouble paying your heating and electricity bill?: No Do you have trouble taking care of your child, family member or friend?: No Do you have trouble with day-to-day activities such as bathing, preparing meals, shopping, managing finances, etc.?: No Are you currently unemployed and looking for a job?: No Are you interested in more education?: Yes Please select the resources that you would like help with: None Currently or been in a relationship where the following occur: No concerns reported THRIVE Score: 0 AUDIT C Alcohol Use Questionnaire (AUDIT-C) 1. How often do you have a drink containing alcohol?: Never Total Score: 0 MARNI-7 AMB Questionnaire MARNI-7 Date MARNI - 7 assessed: 02/15/25 Feeling nervous, anxious, or on edge: 0 = Not at all Not being able to stop or control worryin = Not at all Worrying too much about different things: 1 = Several days Trouble relaxin = Several days Being so restless that it is hard to sit still: 0 = Not at all Becoming easily annoyed or irritable: 0 = Not at all Feeling afraid as if something awful might happen: 0 = Not at all Total MARNI-7 score (0-4 normal; 5-9 mild; 10-14 moderate; 15-21 severe): 2 Source: Developed by Drs. Porfirio Alcala, Marija Barker, Janusz Pittman and colleagues, with an educational hilario from [employer]. MARNI-7 Assessment Billing MARNI-7 Assessment Tool: MARNI-7 Assessment 97595 Review of Systems Const All systems reviewed & are unremarkable except as noted in HPI and below Eyes Reports no additional complaints ENT Reports no additional complaints Card Reports no additional complaints Resp Reports no additional complaints GI Reports no additional complaints Reports no additional complaints Physical exam (Primary Care) Vital Signs: Last Vital Signs Temp 99.0 F 02/15/25 11:08 Pulse 95 02/15/25 11:08 Resp 15 02/15/25 11:08 BP 92/62 02/15/25 11:08 Pulse Ox 96 02/15/25 11:08 Oxygen Delivery Method Room Air 02/15/25 11:08 BMI result Body Mass Index 26.4 Tobacco/Smoking Status: Tobacco use Status Tobacco use date assessed 02/15/25 02/15/25 11:13 Patient Tobacco Use Status Never used Tobacco 02/15/25 11:13 e-Cigarette/Vaping Use Never Used 02/15/25 11:13 PHQ-9: PHQ-9 Score PHQ-9: Total score 0 02/15/25 11:13 Depression Screening Interpretation: Negative Thrive Assessment: Date of Thrive Assessment Date Thrive assessed 02/15/25 02/15/25 11:13 Currently or been in a relationship where the following occur: No concerns reported Const General: no acute distress HENMT Head: Yes normal to inspection Ears: TM's normal bilaterally Face and sinus: Yes normal facial exam Mouth: Normal oral and palatal mucosa present Throat: Yes posterior oropharynx normal Eyes General: appearance normal, both eyes and all related structures Neck Neck: Yes no lymphadenopathy and Yes supple Resp Effort & Inspection: normal respiratory effort Auscultation: clear to auscultation bilaterally Cardio Rhythm: regular rhythm Heart sounds: S1 normal heart sound present and S2 normal heart sound present GI Inspection: Yes normal to inspection Palpation (GI): Soft to palpation Percussion: Yes normal to percussion Auscultation: normal bowel sounds Coding Level of Care Code New Pt Prev Care 18-39yr([id number] Diagnoses LGSIL (low grade squamous intraepithelial dysplasia) Annual physical exam Z00. Additional Codes MARNI-7 Assessment Billing - MARNI-7 Assessment Tool: MARNI-7 Assessment 17841 ([id number]) PHQ-9 - 14119 - PHQ-9 Billing: Yes ([id number]) Assessment & Plan Assessment & Plan (1) LGSIL (low grade squamous intraepithelial dysplasia): Comment: 07/2020 LSIL w Pos HPV, had colpo w [facility]- 10/12.; 10/16/21 pap= neg w neg hpv; 10/22/2022 Pap is negative with negative HPV.; per [facility],plan is 3 yr followup. ( 2025). Category: Medical Plan: f/u with [facility] (2) Annual physical exam: Code(s): Z. - Encounter for general adult medical examination without abnormal findings Category: Medical Plan: Well-balanced diet regular physical activity discussed with the patient. Orders: Orders Comprehensive [place]. Panel Fast 1 Year Z00.00 - Encounter for general adult medical examination without abnormal findings Lipid Panel 1 Year Z00.00 - Encounter for general adult medical examination without abnormal findings Complete Blood Count Auto Diff 1 Year Z00.00 - Encounter for general adult medical examination without abnormal findings UA w Microscopic 1 Year Z00.00 - Encounter for general adult medical examination without abnormal findings TSH reflex Free T4 1 Year Z00.00 - Encounter for general adult medical examination without abnormal findings Vitamin D 25-OH Total 1 Year Z00.00 - Encounter for general adult medical examination without abnormal findings
[2025-02-15 11:08] VITALS: BP 92/62; PULSE 95; RESP 15; TEMP 37.2; O2SAT 96; BMI 26.4
== END 2025-02-15 11:38 | disposition home or self-care (01) ==
PROVIDERS: PCP Internal Medicine; Visit Provider Internal Medicine
DX: Z00.00 Encounter for general adult medical examination without abnormal findings (principal)

== ENCOUNTER → 2025-02-15 11:05 | Outpatient (BNVA) | payer SELFPAY | PROVIDERS: PCP Internal Medicine; Visit Provider Internal Medicine | DX: Z00.00 Encounter for general adult medical examination without abnormal findings (principal); R87.612 Low grade squamous intraepithelial lesion on cytologic smear of cervix (LGSIL) | CPT/HCPCS: 96127; 99395 ==